=== PATIENT | female | born 1985 | race Caucasian/White ===

== ENCOUNTER 2018-01-23 15:53 | Emergency (ER) | payer OTHER ==
[~2018-01-23] VITALS: Wt 72.1 kg
[~2018-01-23 15:53] MED LIST: BENADRYL25 MG PO; IBU800 M1 PO; IBU800 MG PO; PENICILLIN-VK500 MG PO; PREDNISONE10 MG PO
[2018-01-23 16:23] LABS: BILIRUBIN NEGATIVE (NEGATIVE); BLOOD 1+ (NEGATIVE); CLARITY SL CLOUDY (CLEAR); COLOR YELLOW (YELLOW); GLUCOSE NEGATIVE (NEGATIVE); KETONE NEGATIVE (NEGATIVE); LEUKO ESTERASE TRACE (NEGATIVE); NITRITE NEGATIVE (NEGATIVE); UROBILINOGEN 0.2 E.U./dl (0.2-1.0)
[2018-01-23 16:28] LABS: BASO # 0.1 10*3/uL (0.0-0.1); BASO % 0.4 % (0.0-1.0); EOS # 0.3 10*3/uL (0.0-0.4); EOS % 2.9 % (1.0-4.0); HEMATOCRIT 42.3 % (37.0-47.0); HEMOGLOBIN 14.1 g/dl (12.0-16.0); LYMPH # 3.3 10*3/uL (1.3-4.4); LYMPH % 28.7 % (27.0-41.0); MEAN CELL VOLUME 96.1 fl (81.0-99.0); MEAN CORPUSCULAR HGB CONC 33.3 g/dl (33.0-37.0); MEAN PLATELET VOLUME 8.2 fl (9.6-12.3); MONO # 0.8 10*3/uL (0.1-1.0); MONO % 7.2 % (3.0-9.0); NEUT # 6.8 10*3/uL (2.3-7.9); NEUT % 60.3 % (47.0-73.0); PLATELET COUNT AUTOMATED 183 10*3/uL (130-400); RED CELL DISTRI WIDTH 12.5 % (0-14.5); WHITE BLOOD COUNT 11.3 10*3/uL (4.8-10.8)
[2018-01-23 16:36] LABS: BACTERIA 1+; EPITHELIAL CELLS TNTC
[2018-01-23 16:39] LABS: BUN 14 mg/dl (7-24); CHLORIDE 110 mmol/L (98-107); CREATININE 0.76 mg/dL (0.55-1.02); POTASSIUM 3.7 mmol/L (3.5-5.1); SODIUM 142 mmol/L (136-145)
[2018-01-23 16:40] LABS: ACT PARTIAL THROMBO TIME 22.1 SECONDS (20.8-31.5); INTERNATIONAL NORM RATIO 0.9 (2.0-3.5)
[2018-01-23] MEDS ORDERED: MACROBID100 M1 PO (17:08)
== END 2018-01-23 17:25 | disposition home or self-care (01) ==
LOC: ED 15:53
PROVIDERS: Physician Assistant
DX: O23.41 Unspecified infection of urinary tract in pregnancy, first trimester (principal); R31.9 Hematuria, unspecified; O99.331 Smoking (tobacco) complicating pregnancy, first trimester; F17.200 Nicotine dependence, unspecified, uncomplicated; Z3A.01 Less than 8 weeks gestation of pregnancy

== ENCOUNTER 2018-01-24 11:02 | Emergency (ER) | payer OTHER ==
[~2018-01-24] VITALS: Wt 72.1 kg
[~2018-01-24 11:02] MED LIST changes: +MACROBID100 M1 PO
[2018-01-24 11:33] LABS: BASO # 0.1 10*3/uL (0.0-0.1); BASO % 0.5 % (0.0-1.0); EOS # 0.3 10*3/uL (0.0-0.4); EOS % 2.7 % (1.0-4.0); HEMATOCRIT 43.6 % (37.0-47.0); HEMOGLOBIN 14.3 g/dl (12.0-16.0); LYMPH # 2.7 10*3/uL (1.3-4.4); LYMPH % 22.2 % (27.0-41.0); MEAN CELL VOLUME 97.8 fl (81.0-99.0); MEAN CORPUSCULAR HGB 32.1 pg (27.0-31.0); MEAN CORPUSCULAR HGB CONC 32.8 g/dl (33.0-37.0); MEAN PLATELET VOLUME 8.6 fl (9.6-12.3); MONO # 0.8 10*3/uL (0.1-1.0); MONO % 6.5 % (3.0-9.0); NEUT # 8.1 10*3/uL (2.3-7.9); NEUT % 67.5 % (47.0-73.0); PLATELET COUNT AUTOMATED 180 10*3/uL (130-400); RED BLOOD COUNT 4.46 10*6/uL (4.10-5.10); RED CELL DISTRI WIDTH 12.5 % (0-14.5)
[2018-01-24 11:38] LABS: BILIRUBIN NEGATIVE (NEGATIVE); BLOOD 3+ (NEGATIVE); CLARITY SL CLOUDY (CLEAR); COLOR YELLOW (YELLOW); GLUCOSE NEGATIVE (NEGATIVE); KETONE NEGATIVE (NEGATIVE); LEUKO ESTERASE 1+ (NEGATIVE); NITRITE NEGATIVE (NEGATIVE); UROBILINOGEN 0.2 E.U./dl (0.2-1.0)
[2018-01-24 11:47] LABS: ALBUMIN 3.7 gm/dl (3.1-4.5); ALKALINE PHOSPHATASE 69 U/L (45-117); BUN 11 mg/dl (7-24); CHLORIDE 107 mmol/L (98-107); CREATININE 0.67 mg/dL (0.55-1.02); POTASSIUM 4.4 mmol/L (3.5-5.1); SGOT/AST 15 IU/L (3-35); SGPT/ALT 19 U/L (12-78); SODIUM 139 mmol/L (136-145); TOTAL PROTEIN 6.7 gm/dL (6.4-8.2)
[2018-01-24 11:47] LABS: BACTERIA 2+; EPITHELIAL CELLS 40-45
== END 2018-01-24 13:40 | disposition home or self-care (01) ==
LOC: ED 11:02
PROVIDERS: Nurse Practitioner Family
DX: O20.0 Threatened abortion (principal); Z3A.01 Less than 8 weeks gestation of pregnancy; Z79.899 Other long term (current) drug therapy

== ENCOUNTER 2018-01-24 19:50 | Emergency (ER) | payer OTHER ==
[~2018-01-24] VITALS: Ht 157.4 cm; Wt 72.1 kg
== END 2018-01-24 20:16 | disposition home or self-care (01) ==
LOC: ED 19:50
DX: O03.9 Complete or unspecified spontaneous abortion without complication (principal)

== ENCOUNTER 2019-07-13 13:29 | Emergency (ER) | payer OTHER ==
[~2019-07-13] VITALS: Ht 157.4 cm; Wt 99.8 kg
== END 2019-07-13 14:20 | disposition home or self-care (01) ==
LOC: ED 13:29
DX: S60.451A Superficial foreign body of left index finger, initial encounter (principal); R03.0 Elevated blood-pressure reading, without diagnosis of hypertension; Z32.02 Encounter for pregnancy test, result negative; Z91.048 Other nonmedicinal substance allergy status; X58.XXXA Exposure to other specified factors, initial encounter; Y93.89 Activity, other specified; Y92.89 Other specified places as the place of occurrence of the external cause; Y99.8 Other external cause status

== ENCOUNTER 2019-12-20 14:43 | Emergency (ER) | payer SELFPAY ==
[~2019-12-20] VITALS: Ht 157.4 cm; Wt 96.6 kg
[2019-12-20] MEDS ORDERED: FLONASE ALLERG9.9 ML NAS (15:46)
[2019-12-20] MEDS ORDERED: Tobrex Ophth S2.5 ML OPH (15:46)
[2019-12-20] MEDS ORDERED: IBUPROFEN600 MG PO (16:29)
== END 2019-12-20 16:35 | disposition home or self-care (01) ==
LOC: ED 14:43
DX: H10.9 Unspecified conjunctivitis (principal); Z91.048 Other nonmedicinal substance allergy status

== ENCOUNTER → 2021-09-17 | Outpatient (CLI) | payer OTHER ==
[~2021-09-17] MED LIST changes: +FLONASE ALLERG9.9 ML NAS; +IBUPROFEN600 MG PO; +Tobrex Ophth S2.5 ML OPH
[2021-09-17 16:43] LABS: ALBUMIN 3.5 gm/dl (3.1-4.5); ALKALINE PHOSPHATASE 92 U/L (45-117); BUN 14 mg/dl (7-24); CHLORIDE 108 mmol/L (98-107); CHOLESTEROL 204 mg/dL (<200); CREATININE 0.73 mg/dL (0.55-1.02); LDL CHOLESTEROL 130 mg/dL (9-159); POTASSIUM 3.8 mmol/L (3.5-5.1); SGOT/AST 14 IU/L (3-35); SGPT/ALT 16 U/L (12-78); SODIUM 141 mmol/L (136-145); TOTAL PROTEIN 6.9 gm/dL (6.4-8.2); TRIGLYCERIDES 75 mg/dl (<150)
== END | disposition home or self-care (01) ==
LOC: LAB 14:42
PROVIDERS: ATTEND Nurse Practitioner Family
DX: E55.9 Vitamin D deficiency, unspecified (principal); E66.01 Morbid (severe) obesity due to excess calories

== ENCOUNTER 2021-11-05 18:57 | Emergency (ER) | payer OTHER | END 2021-11-05 20:08 | disposition home or self-care (01) | LOC: ED 18:57 | DX: L02.416 Cutaneous abscess of left lower limb (principal) ==

== ENCOUNTER 2022-11-06 11:51 | Emergency (ER) | payer OTHER ==
[~2022-11-06] VITALS: Ht 157.4 cm; Wt 97.5 kg
[2022-11-06 13:38] LABS: BASO % 0.4 % (0.0-1.0); EOS % 0.1 % (1.0-4.0); HEMATOCRIT 36.4 % (37.0-47.0); LYMPH # 2.4 10*3/uL (1.3-4.4); LYMPH % 33.8 % (27.0-41.0); MEAN CELL VOLUME 93.8 fl (81.0-99.0); MEAN CORPUSCULAR HGB CONC 34.1 g/dl (33.0-37.0); MEAN PLATELET VOLUME 8.7 fl (9.6-12.3); MONO # 0.9 10*3/uL (0.1-1.0); MONO % 12.3 % (3.0-9.0); NEUT # 3.8 10*3/uL (2.3-7.9); NEUT % 52.8 % (47.0-73.0); PLATELET COUNT AUTOMATED 205 10*3/uL (130-400); RED BLOOD COUNT 3.88 10*6/uL (4.10-5.10); RED CELL DISTRI WIDTH 12.8 % (0-14.5); WHITE BLOOD COUNT 7.2 10*3/uL (4.8-10.8)
[2022-11-06 13:47] LABS: ACT PARTIAL THROMBO TIME 25.5 SECONDS (20.0-32.1)
[2022-11-06 13:53] LABS: ALKALINE PHOSPHATASE 82 U/L (46-116); BETA-HCG, QUANT < 3.0 mIU/mL (0-10); BUN 9 mg/dl (9-23); CHLORIDE 102 mmol/L (98-107); LIPASE 24 U/L (12-53); POTASSIUM 2.8 mmol/L (3.4-5.1); SGPT/ALT 264 U/L (10-49); TOTAL PROTEIN 6.2 gm/dL (6.0-8.0)
[2022-11-06] MEDS ORDERED: VIBRA-TAB100 MG PO (16:33)
[2022-11-06] MEDS ORDERED: HYDROCODONE-AC1 EAC1 PO (16:35)
[2022-11-06] MEDS ORDERED: K-TAB20 MEQ PO (16:39)
== END 2022-11-06 17:02 | disposition home or self-care (01) ==
LOC: ED 11:51
PROVIDERS: Emergency Medicine
DX: L03.316 Cellulitis of umbilicus (principal); E87.6 Hypokalemia; R79.89 Other specified abnormal findings of blood chemistry

== ENCOUNTER → 2022-11-23 | Day surgery (SDC) | payer OTHER ==
[2022-11-20 12:39] VITALS: BP 112/77
[2022-11-23] VITALS (8 sets, daily range): BP systolic 116–147; BP diastolic 45–86
[~2022-11-23] VITALS: Ht 157.4 cm; Wt 127.0 kg
[~2022-11-23] MED LIST changes: +ALAVERT10 M2 PO; +COLACE100 MG PO; +DULOXETINE HCL30 MG PO; +HYDROCODONE-AC1 EAC1 PO; +K-TAB20 MEQ PO; +OMEPRAZOLE40 MG PO; +ONDANSETRON HYDR4 M1 PO; +PEPCID40 MG PO; +TRAZODONE100 MG PO; +VIBRA-TAB100 MG PO; +VITAMIN D3125 MCG PO
== END | disposition home or self-care (01) ==
LOC: SDC 11-20 12:30
PROVIDERS: ATTEND Surgery
DX: Q64.4 Malformation of urachus (principal); G43.909 Migraine, unspecified, not intractable, without status migrainosus; F41.9 Anxiety disorder, unspecified; F32.A Depression, unspecified; K21.9 Gastro-esophageal reflux disease without esophagitis; F17.210 Nicotine dependence, cigarettes, uncomplicated; Z79.899 Other long term (current) drug therapy

== ENCOUNTER 2023-05-02 11:49 | Emergency (ER) | payer OTHER ==
[~2023-05-02] VITALS: Ht 157.4 cm; Wt 113.4 kg
[2023-05-02] MEDS ORDERED: VIBRAMYCIN100 MG PO (13:37)
== END 2023-05-02 14:03 | disposition home or self-care (01) ==
LOC: ED 11:49
DX: B37.9 Candidiasis, unspecified (principal); Z88.8 Allergy status to other drugs, medicaments and biological substances

== ENCOUNTER → 2023-07-20 | Outpatient (CLI) | payer OTHER ==
[~2023-07-20] MED LIST changes: +VIBRAMYCIN100 MG PO
[2023-07-20 10:43] LABS: HEMATOCRIT 47.2 % (37.0-47.0); MEAN CELL VOLUME 98.5 fl (81.0-99.0); MEAN CORPUSCULAR HGB 32.4 pg (27.0-31.0); MEAN CORPUSCULAR HGB CONC 32.8 g/dl (33.0-37.0); MEAN PLATELET VOLUME 8.4 fl (9.6-12.3); PLATELET COUNT AUTOMATED 246 10*3/uL (130-400); RED BLOOD COUNT 4.79 10*6/uL (4.10-5.10); RED CELL DISTRI WIDTH 12.9 % (0-14.5); WHITE BLOOD COUNT 21.6 10*3/uL (4.8-10.8)
[2023-07-20 10:44] LABS: MANUAL DIFF REFLEX YES
[2023-07-20 11:04] LABS: PLATELET SUFFICIENCY NORMAL (NORMAL); TOTAL CELLS COUNTED 100 #CELLS
[2023-07-20 11:14] LABS: ALKALINE PHOSPHATASE 105 U/L (46-116); BUN 18 mg/dl (9-23); CHLORIDE 107 mmol/L (98-107); CHOLESTEROL 214 mg/dL (<200); LDL CHOLESTEROL 118 mg/dL (9-159); POTASSIUM 4.9 mmol/L (3.4-5.1); SGPT/ALT 18 U/L (10-49); TOTAL PROTEIN 7.8 gm/dL (6.0-8.0); TRIGLYCERIDES 120 mg/dl (<150)
== END | disposition home or self-care (01) ==
LOC: LAB 10:27
PROVIDERS: ATTEND Nurse Practitioner Family
DX: E55.9 Vitamin D deficiency, unspecified (principal); E66.01 Morbid (severe) obesity due to excess calories; E05.90 Thyrotoxicosis, unspecified without thyrotoxic crisis or storm; F17.210 Nicotine dependence, cigarettes, uncomplicated

== ENCOUNTER 2023-08-20 14:21 | Emergency (ER) | payer OTHER ==
[~2023-08-20] VITALS: Ht 157.4 cm; Wt 104.3 kg
[2023-08-20] MEDS ORDERED: LIDOCAINE PAIN1 EACH T (15:05)
[2023-08-20] MEDS ORDERED: IBU800 M1 PO (15:05)
[2023-08-20] MEDS ORDERED: METRONIDAZOLE500 M1 PO (15:50)
== END 2023-08-20 17:31 | disposition home or self-care (01) ==
LOC: ED 14:21
DX: M79.604 Pain in right leg (principal); S39.012A Strain of muscle, fascia and tendon of lower back, initial encounter; Z88.8 Allergy status to other drugs, medicaments and biological substances; Z98.890 Other specified postprocedural states; X50.1XXA Overexertion from prolonged static or awkward postures, initial encounter; Y93.E9 Activity, other interior property and clothing maintenance; Y92.89 Other specified places as the place of occurrence of the external cause; Y99.8 Other external cause status

== ENCOUNTER → 2023-08-21 | Outpatient (CLI) | payer OTHER ==
[2023-08-20 14:06] LABS: BASO # 0.1 10*3/uL (0.0-0.1); BASO % 0.5 % (0.0-1.0); EOS % 0.2 % (1.0-4.0); HEMATOCRIT 37.9 % (37.0-47.0); LYMPH # 3.3 10*3/uL (1.3-4.4); MEAN CELL VOLUME 95.9 fl (81.0-99.0); MEAN CORPUSCULAR HGB 32.4 pg (27.0-31.0); MEAN CORPUSCULAR HGB CONC 33.8 g/dl (33.0-37.0); MEAN PLATELET VOLUME 8.8 fl (9.6-12.3); MONO # 0.9 10*3/uL (0.1-1.0); MONO % 7.2 % (3.0-9.0); NEUT # 8.3 10*3/uL (2.3-7.9); NEUT % 65.5 % (47.0-73.0); PLATELET COUNT AUTOMATED 217 10*3/uL (130-400); RED BLOOD COUNT 3.95 10*6/uL (4.10-5.10); RED CELL DISTRI WIDTH 12.6 % (0-14.5); WHITE BLOOD COUNT 12.7 10*3/uL (4.8-10.8)
[2023-08-20 14:18] LABS: ACT PARTIAL THROMBO TIME 29.3 SECONDS (20.0-32.1)
[2023-08-20 14:28] LABS: ALKALINE PHOSPHATASE 99 U/L (46-116); BUN 10 mg/dl (9-23); CHLORIDE 107 mmol/L (98-107); POTASSIUM 3.2 mmol/L (3.4-5.1); SGPT/ALT 38 U/L (5-49); TOTAL PROTEIN 6.8 gm/dL (6.0-8.0)
[2023-08-20 14:45] LABS: FREE T4 1.26 ng/dl (0.89-1.76)
[~2023-08-21] MED LIST changes: +LIDOCAINE PAIN1 EACH T; +METRONIDAZOLE500 M1 PO
== END | disposition home or self-care (01) ==
LOC: LAB 08-20 13:31 → MAMMO 13:30 → LAB 13:30 → MAMMO 09-13 10:30
PROVIDERS: ATTEND Nurse Practitioner Family
DX: S20.00XA Contusion of breast, unspecified breast, initial encounter (principal); N64.4 Mastodynia; X58.XXXA Exposure to other specified factors, initial encounter; Y93.89 Activity, other specified; Y92.89 Other specified places as the place of occurrence of the external cause; Y99.8 Other external cause status

== ENCOUNTER → 2023-08-28 | Outpatient (CLI) | payer OTHER | END | disposition home or self-care (01) | LOC: MAMMO 13:41 | PROVIDERS: ATTEND Nurse Practitioner Family | DX: S20.00XA Contusion of breast, unspecified breast, initial encounter (principal); N64.4 Mastodynia; X58.XXXA Exposure to other specified factors, initial encounter; Y93.89 Activity, other specified; Y92.89 Other specified places as the place of occurrence of the external cause; Y99.8 Other external cause status ==

== ENCOUNTER 2024-01-11 09:55 | Emergency (ER) | payer OTHER ==
[~2024-01-11] VITALS: Ht 157.4 cm; Wt 97.5 kg
[2024-01-11] MEDS ORDERED: PENICILLIN VK500 MG PO (10:36)
[2024-01-11] MEDS ORDERED: Acetaminophen/Hydrocodone 5 MG/325 MG TABLET PO ONE (10:40)
[2024-01-11] MEDS ORDERED: methylPREDNISolone sod succ 125 MG VIAL IM ONE (10:40)
[2024-01-11] MEDS ORDERED: PENICILLIN V POTASSIUM 500 MG TAB PO ONE (10:40)
== END 2024-01-11 11:28 | disposition home or self-care (01) ==
LOC: ED 09:55
DX: K04.7 Periapical abscess without sinus (principal); K02.9 Dental caries, unspecified; M54.31 Sciatica, right side; E87.6 Hypokalemia; Z88.8 Allergy status to other drugs, medicaments and biological substances; Z98.890 Other specified postprocedural states

== ENCOUNTER → 2024-05-21 | Outpatient (CLI) | payer OTHER ==
[~2024-05-21] MED LIST changes: +PENICILLIN VK500 MG PO
== END | disposition home or self-care (01) ==
LOC: RAD 15:03
PROVIDERS: ATTEND Nurse Practitioner Family
DX: M47.27 Other spondylosis with radiculopathy, lumbosacral region (principal); M25.561 Pain in right knee; M54.42 Lumbago with sciatica, left side

== ENCOUNTER 2024-07-28 13:23 | Emergency (ER) | payer OTHER ==
[~2024-07-28] VITALS: Ht 1584 cm; Wt 104.3 kg
[2024-07-28] MEDS ORDERED: Albuterol Sulf/Ipratropium 3 ML VIAL NEB ONE (14:05)
[2024-07-28] MEDS ORDERED: methylPREDNISolone sod succ 125 MG VIAL IM ONE (14:05)
[2024-07-28 14:20] LABS: BASO # 0.1 10*3/uL (0.0-0.1); BASO % 0.5 % (0.0-1.0); EOS # 0.1 10*3/uL (0.0-0.4); EOS % 0.5 % (1.0-4.0); HEMATOCRIT 46.1 % (37.0-47.0); LYMPH # 2.3 10*3/uL (1.3-4.4); MEAN CELL VOLUME 95.4 fl (81.0-99.0); MEAN CORPUSCULAR HGB 32.5 pg (27.0-31.0); MEAN CORPUSCULAR HGB CONC 34.1 g/dl (33.0-37.0); MEAN PLATELET VOLUME 8.8 fl (9.6-12.3); MONO # 1.2 10*3/uL (0.1-1.0); MONO % 8.9 % (3.0-9.0); NEUT # 9.2 10*3/uL (2.3-7.9); NEUT % 71.6 % (47.0-73.0); PLATELET COUNT AUTOMATED 149 10*3/uL (130-400); RED BLOOD COUNT 4.83 10*6/uL (4.10-5.10); RED CELL DISTRI WIDTH 12.4 % (0-14.5); WHITE BLOOD COUNT 12.9 10*3/uL (4.8-10.8)
[2024-07-28 14:38] LABS: BUN 6 mg/dl (9-23); CHLORIDE 108 mmol/L (98-107); POTASSIUM 3.2 mmol/L (3.4-5.1)
[2024-07-29] MEDS ORDERED: PREDNISONE20 M1 PO (01:00)
[2024-07-29] MEDS ORDERED: ZITHROMAX250 MG PO (01:00)
== END 2024-07-28 17:07 | disposition left against medical advice (07) ==
LOC: ED 13:23
PROVIDERS: Internal Medicine
DX: A41.9 Sepsis, unspecified organism (principal); J18.9 Pneumonia, unspecified organism; Z53.29 Procedure and treatment not carried out because of patient's decision for other reasons; Z88.8 Allergy status to other drugs, medicaments and biological substances; Z98.890 Other specified postprocedural states

== ENCOUNTER 2024-07-28 23:42 | Emergency (ER) | payer OTHER ==
[~2024-07-28] VITALS: Wt 90.7 kg
[2024-07-29] MEDS ORDERED: Albuterol Sulf/Ipratropium 3 ML VIAL NEB ONE (00:40)
[2024-07-29] MEDS ORDERED: ZITHROMAX250 MG PO (01:00)
[2024-07-29] MEDS ORDERED: PREDNISONE20 M1 PO (01:00)
== END 2024-07-29 01:19 | disposition home or self-care (01) ==
LOC: ED 23:42
DX: A41.9 Sepsis, unspecified organism (principal); B34.9 Viral infection, unspecified; E87.6 Hypokalemia; D72.829 Elevated white blood cell count, unspecified; Z88.8 Allergy status to other drugs, medicaments and biological substances; Z98.890 Other specified postprocedural states

== ENCOUNTER 2024-07-31 11:21 | Emergency (ER) | payer OTHER ==
[~2024-07-31] VITALS: Wt 104.3 kg
[~2024-07-31 11:21] MED LIST changes: +PREDNISONE20 M1 PO; +ZITHROMAX250 MG PO
[2024-07-31] MEDS ORDERED: Albuterol Sulfate 2.5 MG/3 ML VIAL NEB ONE (13:00)
[2024-07-31] MEDS ORDERED: Albuterol Sulf/Ipratropium 3 ML VIAL NEB ONE (13:00)
[2024-07-31] MEDS ORDERED: INHAL AID 1 KIT DEVICE INH ONE (13:50)
== END 2024-07-31 14:46 | disposition home or self-care (01) ==
LOC: ED 11:21
DX: J40 Bronchitis, not specified as acute or chronic (principal); Z88.8 Allergy status to other drugs, medicaments and biological substances; Z98.890 Other specified postprocedural states; Z87.891 Personal history of nicotine dependence

== ENCOUNTER 2025-01-09 15:08 | Emergency (ER) | payer OTHER ==
[~2025-01-09] VITALS: Ht 157.4 cm; Wt 96.6 kg
[2025-01-09] MEDS ORDERED: Ketorolac Tromethamine 15 MG/ML VIAL IV ONE (15:45)
[2025-01-09] MEDS ORDERED: SODIUM CHLORIDE 0.9% 1,000 ML IV ONE (15:45)
[2025-01-09 16:01] LABS: BASO % 0.4 % (0.0-1.0); HEMATOCRIT 47.9 % (37.0-47.0); MEAN CELL VOLUME 97.2 fl (81.0-99.0); MEAN CORPUSCULAR HGB CONC 31.9 g/dl (33.0-37.0); MEAN PLATELET VOLUME 8.5 fl (9.6-12.3); MONO # 0.5 10*3/uL (0.1-1.0); MONO % 6.8 % (3.0-9.0); NEUT % 40.4 % (47.0-73.0); PLATELET COUNT AUTOMATED 174 10*3/uL (130-400); RED BLOOD COUNT 4.93 10*6/uL (4.10-5.10); RED CELL DISTRI WIDTH 12.6 % (0-14.5); WHITE BLOOD COUNT 7.5 10*3/uL (4.8-10.8)
[2025-01-09 16:23] LABS: BUN 6 mg/dl (9-23); CHLORIDE 108 mmol/L (98-107); POTASSIUM 3.7 mmol/L (3.4-5.1)
[2025-01-09] MEDS ORDERED: PAXLOVID 300-11 EAC3 PO (16:44)
[2025-01-09] MEDS ORDERED: Ketorolac Tromethamine 30 MG/ML VIAL IM ONE (16:45)
[2025-01-09 16:50] LABS: BILIRUBIN Negative (Negative); BLOOD 2+ (Negative); CLARITY Clear (Clear); COLOR Yellow (Yellow); GLUCOSE Negative (Negative); KETONE Negative (Negative); LEUKO ESTERASE 3+ (Negative); NITRITE Negative (Negative); UROBILINOGEN 0.2 E.U./dl (0.0-1.0)
[2025-01-09 17:01] LABS: PH 8.5 (4.5-8.0)
[2025-01-09 17:08] LABS: BACTERIA 2+; EPITHELIAL CELLS 21-30; WBC 21-30 wbc/hpf (0-5)
== END 2025-01-09 16:47 | disposition home or self-care (01) ==
LOC: ED 15:08
PROVIDERS: Emergency Medicine
DX: U07.1 COVID-19 (principal); Z91.048 Other nonmedicinal substance allergy status; Z79.899 Other long term (current) drug therapy

== ENCOUNTER 2025-03-09 17:15 | Emergency (ER) | payer OTHER ==
[~2025-03-09] VITALS: Ht 157.4 cm; Wt 93.0 kg
[~2025-03-09 17:15] MED LIST changes: +PAXLOVID 300-11 EAC3 PO
[2025-03-09] MEDS ORDERED: Ketorolac Tromethamine 30 MG/ML VIAL IM ONE (18:45)
== END 2025-03-09 18:59 | disposition home or self-care (01) ==
LOC: ED 17:15
DX: B07.0 Plantar wart (principal); Z91.048 Other nonmedicinal substance allergy status; Z79.899 Other long term (current) drug therapy